=== PATIENT | female | born 1960 | race African-American/Black ===

== ENCOUNTER 2017-10-09 20:09 | Observation (INO) | payer SELFPAY ==
[~2017-10-09 20:09] MED LIST: HYDR50TA5 PO; IBUP400 PO; LORTA5 PO
[2017-10-09 20:11] VITALS: BP 185/90; PULSE 125; RESP 20; TEMP 102.3; O2SAT 96
[2017-10-09] MEDS ORDERED: ACETAMINOPHEN 325 MG TAB PO ONE (20:45)
[2017-10-09 21:04] VITALS: BP 185/79; PULSE 119; RESP 16; O2SAT 98
[2017-10-09] MEDS ORDERED: RESP: ALBUTEROL 2.5 MG/IPRATROPIUM 0.5 MG NEB (SCH) NEB ONE (21:15)
[2017-10-09] MEDS ORDERED: RESP: LIDOCAINE HCL 4% PF 5 ML NEB NEB ONE (21:15)
[2017-10-09] MEDS ORDERED: ASPIRIN 325 MG TAB PO ONE (21:15)
[2017-10-09] MEDS ORDERED: SODIUM CHLORIDE 0.9% FLUSH 10 ML FLUSH IVF PRN (21:15)
[2017-10-09] MEDS ORDERED: NITROGLYCERIN 2% OINT 1 GM PACKET TOPICAL ONE (21:15)
[2017-10-09 21:49] LABS: BASOPHIL % 0.3 % (0.0-2.0); BLOOD UREA NITROGEN 15 MG/DL (7-18); CALCIUM 9.5 MG/DL (8.5-10.1); CHLORIDE 104 MEQ/L (98-107); CREATININE 1.06 MG/DL (0.50-1.00); EOSINOPHIL # 0.1 TH/MM3 (0-0.4); EOSINOPHIL % 2.4 % (0.0-4.0); GLOMERULAR FILTRATION RATE 65 ML/MIN (>89); GLUCOSE,RANDOM 127 MG/DL (74-106); HEMATOCRIT 31.9 % (35.0-46.0); HEMOGLOBIN 10.1 GM/DL (11.6-15.3); LYMPH % 7.3 % (9.0-44.0); LYMPHOCYTE # 0.4 TH/MM3 (1.0-4.8); MEAN CELL VOLUME 64.9 FL (80.0-100.0); MEAN CORPUSCULAR HEMOGLOBIN 20.6 PG (27.0-34.0); MEAN CORPUSCULAR HGB CONC 31.7 % (32.0-36.0); MEAN PLATELET VOLUME 8.3 FL (7.0-11.0); MONO % 8.7 % (0.0-8.0); MONOCYTE # 0.5 TH/MM3 (0-0.9); NEUT % 81.3 % (16.0-70.0); PLATELET COUNT 241 TH/MM3 (150-450); RED BLOOD COUNT 4.91 MIL/MM3 (4.00-5.30); RED CELL DISTRIBUTION WIDTH 16.5 % (11.6-17.2); SODIUM (NA) 137 MEQ/L (136-145); WHITE BLOOD COUNT 6.1 TH/MM3 (4.0-11.0)
--- NOTE | 2017-10-09 21:51 | RADRPT ---
EXAM DATE/TIME: 10/09/2017 21:34 [facility] COMPARISON: No previous studies available for comparison. INDICATIONS : Chest pain. Short of breath. MEDICAL HISTORY : None. SURGICAL HISTORY : None. ENCOUNTER: Initial ACUITY: 2 days PAIN SCORE: 8/10 LOCATION: Bilateral chest FINDINGS: A single view of the chest demonstrates the lungs to be symmetrically aerated without evidence of mas s, infiltrate or effusion. There is some prominence of the pulmonary vasculature. The cardiomediastin al contours are unremarkable. Osseous structures are intact. CONCLUSION: Pulmonary venous congestion. No acute pulmonary infiltrates. Christ Krause MD on October 09, 2017 at 21:48 Board Certified Radiologist. This report was verified electronically.
[2017-10-09 22:05] LABS: PROTHROMBIN TIME - PATIENT 10.6 SEC (9.8-11.6)
[2017-10-09 22:06] LABS: D-DIMER 1.02 MG/L FEU (0.00-0.50)
[2017-10-09 22:09] VITALS: O2SAT 96
[2017-10-09] MEDS ORDERED: FUROSEMIDE 40 MG TAB PO ONE (22:15)
[2017-10-09 22:30] VITALS: BP 168/69; PULSE 120; RESP 16; O2SAT 95
[2017-10-09 22:31] VITALS: BP 168/69; PULSE 120; RESP 16; O2SAT 96
[2017-10-09 22:42] LABS: TROPONIN I LESS THAN 0.02 NG/ML (0.02-0.05)
--- NOTE | 2017-10-09 23:44 | RADRPT ---
EXAM DATE/TIME: 10/09/2017 23:14 [facility] COMPARISON: No previous studies available for comparison. INDICATIONS : Bilateral leg swelling. MEDICAL HISTORY : Hypertension. Cardiac disorders. SURGICAL HISTORY : Tubal ligation. ENCOUNTER: Initial ACUITY: >1 year PAIN SCORE: 6/10 LOCATION: Bilateral legs. TECHNIQUE: Venous ultrasound of the left and right leg was performed from the inguinal ligament to the proximal calf. Real-time, color Doppler and spectral tracing, compression and augmentation techniques were us ed. FINDINGS: RIGHT LEG: There is normal compressibility of the deep venous system from the inguinal region to the proximal ca lf. No echogenic clot is seen in the lumen of the common femoral, femoral, popliteal, and posterior tibial veins. There is a normal response of the venous system to proximal and distal augmentation an d respiration. LEFT LEG: There is normal compressibility of the deep venous system from the inguinal region to the proximal ca lf. No echogenic clot is seen in the lumen of the common femoral, femoral, popliteal, and posterior tibial veins. There is a normal response of the venous system to proximal and distal augmentation an d respiration. CONCLUSION: No DVT is identified within either lower extremity. Wilfred Abarca MD on October 09, 2017 at 23:42 Board Certified Radiologist. This report was verified electronically.
[2017-10-09] MEDS ORDERED: IOHEXOL 350 MG/ML 10 ML VIAL (for RAD DIAG) IVCONTRAST ONE (23:59)
[2017-10-10] VITALS (10 sets, daily range): BP systolic 125–172; BP diastolic 63–77; PULSE 78–108; RESP 18–22; TEMP 98.7–100.1; O2SAT 95–99
--- NOTE | 2017-10-10 00:09 | RADRPT ---
EXAM DATE/TIME: 10/09/2017 23:45 [facility] COMPARISON: No previous studies available for comparison. INDICATIONS : Chest pain. IV CONTRAST: 75 cc Omnipaque 350 (iohexol) IV RADIATION DOSE: 20.11 CTDIvol (mGy) ; Patient body habitus MEDICAL HISTORY : Cardiovascular disease. Hypertension. SURGICAL HISTORY : None. ENCOUNTER: Initial ACUITY: 1 day PAIN SCALE: 4/10 LOCATION: Bilateral chest TECHNIQUE: Volumetric scanning of the chest was performed using a pulmonary embolism protocol MIP images were re constructed. Using automated exposure control and adjustment of the mA and/or kV according to patien t size, radiation dose was kept as low as reasonably achievable to obtain optimal diagnostic quality images. DICOM format image data is available electronically for review and comparison. Follow-up recommendations for detected pulmonary nodules are based at a minimum on nodule size and pa tient risk factors according to Fleischner Society Guidelines. FINDINGS: PULMONARY ARTERIES: No filling defects are seen in the pulmonary arteries through the segmental level. LUNGS: There is no consolidation or pneumothorax . No concerning pulmonary nodule is visualized. PLEURAE: There is no pleural thickening or pleural effusion. MEDIASTINUM: There is good visualization of the great vessels of the middle mediastinum. No evidence of mediastin al or hilar adenopathy/mass. MUSCULOSKELETAL: No acute abnormality. MISCELLANEOUS: The visualized upper abdominal organs demonstrate no acute abnormality. There is a small hiatal herni a. CONCLUSION: 1. No PE is identified. Additionally, no acute finding is identified to explain the patient's chest p ain. 2. Small hiatal hernia. Wilfred Abarca MD on October 10, 2017 at 0:02 Board Certified Radiologist. This report was verified electronically.
[2017-10-10] MEDS ORDERED: predniSONE 20 MG TAB PO ONE (02:15)
[2017-10-10] MEDS ORDERED: RESP: ALBUTEROL 2.5 MG/IPRATROPIUM 0.5 MG NEB (SCH) NEB ONE ×2 (02:15→22:45)
--- NOTE | 2017-10-10 03:24 | PD ---
HPI . Cold/flu symptoms Chief Complaint: Cold / Flu Symptoms Time Seen by Provider: 21:09 Travel History International Travel<30 days: No Contact w/Intl Traveler<30days: No Traveled to known affect area: No History of Present Illness HPI 57-year-old female with no significant past medical history, however the patient does not frequent doctor's office, last visit was potentially 20 years ago, presents with having upper respiratory type symptoms with staccato cough, difficulty taking a deep breath without causing the cough, patient also notes increased leg swelling of late, with having worsening of shortness of breath with lying supine. This is been increasing over the past several weeks to month. Patient does note slight decrease in exercise tolerance. Patient has a history of morbid obesity but notes some increasing weight gain of late as well , unquantified. Patient denies fevers chills sweats, body aches. Patient is frequently sedentary. Her lifestyle, has had no confining travel. PFSH Past Medical History Narrative Medical Past medical history reviewed. See history of present illness Cardiovascular Problems: Yes Diminished Hearing: No Hypertension: Yes Immunizations Current: No Tubal Ligation: Yes Social History Alcohol Use: No Tobacco Use: No Substance Use: No Allergies-Medications (Allergen,Severity, Reaction): Coded Allergies: No Known Allergies (Unverified Allergy, Unknown, 10/09/17) Reported Meds & Prescriptions Reported Meds & Active Scripts Active Narrative Medication Allergies and medications reviewed Review of Systems Except as stated in HPI: all other systems reviewed are Neg General / Constitutional: No: Fever Eyes: No: Visual changes HENT: No: Headaches Cardiovascular: No: Chest Pain or Discomfort Respiratory: Positive: Cough, Shortness of Breath, Wheezing, Orthopnea, No: Sneezing, Hemoptysis, Stridor, Night Sweats, Pleuritic Pain Gastrointestinal: No: Abdominal Pain Genitourinary: No: Dysuria Musculoskeletal: Positive: Edema, No: Pain Skin: No Rash Neurologic: No: Weakness Psychiatric: No: Depression Endocrine: No: Polydipsia Hematologic/Lymphatic: No: Easy Bruising Physical Exam Narrative GENERAL: Awake alert oriented 3 mild respiratory distress with frequent coughing. Oxygen saturation 95/96% on room air. SKIN: Warm and dry. Color is normal no diaphoresis cyanosis or pallor HEAD: Atraumatic. Normocephalic. EYES: Pupils equal and round. No scleral icterus. No injection or drainage. ENT: No nasal bleeding or discharge. Mucous membranes pink and moist. NECK: Trachea midline. No JVD. Supple no stridor CARDIOVASCULAR: Regular rate and rhythm. S1-S2 no murmurs rubs gallops RESPIRATORY: No accessory muscle use. Clear to auscultation. Breath sounds equal bilaterally. Prolonged expiratory phase with cough only. Mild rhonchi with forced exhalation/cough. Equal bilateral excursions GASTROINTESTINAL: Abdomen soft, non-tender, nondistended. Hepatic and splenic margins not palpable. MUSCULOSKELETAL: Extremities without clubbing, cyanosis, . No obvious deformities. Patient is morbidly obese, however patient does have increased pitting edema bilateral lower extremities NEUROLOGICAL: Awake and alert. No obvious cranial nerve deficits. Motor grossly within normal limits. Five out of 5 muscle strength in the arms and legs. Normal speech. PSYCHIATRIC: Appropriate mood and affect; insight and judgment normal. Data Data Last Documented VS Vital Signs Date Time Temp Pulse Resp B/P (MAP) Pulse Ox O2 Delivery O2 Flow Rate FiO2 10/10/17 03:15 10/09/17 22:31 120 16 96 Room Air 10/09/17 22:09 21 10/09/17 20:11 102.3 Orders Orders Influenzae A/B Antigen (10/09/17 20:37) Complete Blood Count With Diff (10/09/17 20:37) Basic Metabolic Panel (Bmp) (10/09/17 20:37) Group A Rapid Strep Screen (10/09/17 20:37) Acetaminophen (Tylenol) (10/09/17 20:45) Electrocardiogram (10/09/17 ) Chest, Single Ap (10/09/17 ) Electrocardiogram (10/09/17 21:10) B-Type Natriuretic Peptide (10/09/17 21:10) D-Dimer (10/09/17 21:10) Prothrombin Time / Inr (Pt) (10/09/17 21:10) Act Partial Throm Time (Ptt) (10/09/17 21:10) Ecg Monitoring (10/09/17 21:10) Bilateral Bp Monitoring (10/09/17 21:10) Iv Access Insert/Monitor (10/09/17 21:10) Oximetry (10/09/17 21:10) Oxygen Administration (10/09/17 21:10) Sodium Chloride 0.9% Flush (Ns Flush) (10/09/17 21:15) Aspirin (Aspirin) (10/09/17 21:15) Nitroglycerin 2% Oint (Nitroglycerin 2% (10/09/17 21:15) Albuterol-Ipratropium Neb (Duoneb Neb) (10/09/17 21:15) Lidocaine Pf 4% Neb (Lidocaine Pf 4% Neb (10/09/17 21:15) Strep Culture (Group A) (10/09/17 20:55) Ckmb (Isoenzyme) Profile (10/09/17 20:55) Magnesium (Mg) (10/09/17 20:55) Troponin I (10/09/17 20:55) Furosemide (Lasix) (10/09/17 22:15) CKMB (10/09/17 20:55) CKMB% (10/09/17 20:55) Ct Pulmonary Angiogram (10/09/17 ) Us Leg Venous Doppler Bilat (10/09/17 ) Iohexol 350 Inj (Omnipaque 350 Inj) (10/09/17 23:59) Troponin I (10/10/17 00:57) Prednisone (Deltasone) (10/10/17 02:15) Albuterol-Ipratropium Neb (Duoneb Neb) (10/10/17 02:15) Labs Laboratory Tests Test 10/09/17 20:55 10/09/17 21:12 10/10/17 01:12 White Blood Count 6.1 TH/MM3 Red Blood Count 4.91 MIL/MM3 Hemoglobin 10.1 GM/DL Hematocrit 31.9 % Mean Corpuscular Volume 64.9 FL Mean Corpuscular Hemoglobin 20.6 PG Mean Corpuscular Hemoglobin Concent 31.7 % Red Cell Distribution Width 16.5 % Platelet Count 241 TH/MM3 Mean Platelet Volume 8.3 FL Neutrophils (%) (Auto) 81.3 % Lymphocytes (%) (Auto) 7.3 % Monocytes (%) (Auto) 8.7 % Eosinophils (%) (Auto) 2.4 % Basophils (%) (Auto) 0.3 % Neutrophils # (Auto) 5.0 TH/MM3 Lymphocytes # (Auto) 0.4 TH/MM3 Monocytes # (Auto) 0.5 TH/MM3 Eosinophils # (Auto) 0.1 TH/MM3 Basophils # (Auto) 0.0 TH/MM3 CBC Comment DIFF FINAL Differential Comment Blood Urea Nitrogen 15 MG/DL Creatinine 1.06 MG/DL Random Glucose 127 MG/DL Calcium Level 9.5 MG/DL Magnesium Level 2.0 MG/DL Sodium Level 137 MEQ/L Potassium Level 3.8 MEQ/L Chloride Level 104 MEQ/L Carbon Dioxide Level 28.0 MEQ/L Anion Gap 5 MEQ/L Estimat Glomerular Filtration Rate 65 ML/MIN Total Creatine Kinase 110 U/L Creatine Kinase MB 0.9 NG/ML Troponin I LESS THAN 0.02 NG/ML LESS THAN 0.02 NG/ML Prothrombin Time 10.6 SEC Prothromb Time International Ratio 1.0 RATIO Activated Partial Thromboplast Time 28.3 SEC D-Dimer Quantitative (PE/DVT) 1.02 MG/L FEU B-Type Natriuretic Peptide 40 PG/ML MDM Medical Decision Making Medical Screen Exam Complete: Yes Emergency Medical Condition: Yes Medical Record Reviewed: Yes Differential Diagnosis Peripheral edema, CHF, upper respiratory infection, influenza, pneumonia, pulmonary embolus, myocardial infarction, renal failure Narrative Course Chest x-ray mild pulmonary congestion. Laboratory examinations reviewed, patient has normal cardiac enzymes. Elevated d-dimer EKG: Sinus tachycardia at 120 bpm, T-wave inversions V4 V5 and V6. Repeat EKG no evolution, T-wave inversions V4 V5 and V6. Unclear age of same. CT pulmonary angiogram negative for acute ulnar embolus. Bilateral duplex Doppler lower extremity negative for acute DVT Patient has interval improvement with orthopnea, leg swelling after Lasix and diuresis. Patient has interval improvement in staccato cough and shortness of breath with wheeze after treatment with albuterol Atrovent treatments and steroids. Case discussed with patient, patient's daughter, and hospitalist service. Patient's deep T-wave inversions in her precordium leads V4 4 through 6 and relatively acute onset of peripheral edema and orthopnea concerning for possible recent cardiac event. Patient has no established physician as outpatient. Recommended patient be admitted under observation, echocardiogram and potential cardiology consult in the a.m. Diagnosis Primary Impression: Congestive heart failure Qualified Codes: I50.9 - Heart failure, unspecified Additional Impression: Acute bronchitis Qualified Codes: J20.9 - Acute bronchitis, unspecified Admitting Information Admitting Physician Requests: Observation Patient Instructions: General Instructions Departure Forms: Tests/Procedures Unkenholz,Adonis Jemal MD Oct 10, 2017 03:24
[2017-10-10] MEDS ORDERED: SODIUM CHLORIDE 0.9% FLUSH 10 ML FLUSH IV FLUSH PRN (04:15)
[2017-10-10] MEDS ORDERED: ACETAMINOPHEN 325 MG TAB PO PRN (04:15)
[2017-10-10] MEDS ORDERED: ONDANSETRON HCL 4 MG/2 ML VIAL IVP PRN (04:15)
--- NOTE | 2017-10-10 05:18 | HHI.HP ---
[facility] No Primary Care Physician Admission Diagnosis Diagnoses: Travel History International Travel<30 Days: No Contact w/Intl Traveler <30 Da: No Traveled to Known Affected Are: No History of Present Illness 57-year-old female with no significant past medical history of present emergency department for evaluation of chest pain and cold-like symptoms. The patient reports a heaviness in her chest with accompanying shortness of breath. She states she has had a nonproductive cough with throat pain and fever for the past several days. She denies any past medical history however does not have a primary care provider see a physician regularly. She also complains of a 2 year history of bilateral lower extremity edema. Review of Systems Except as stated in HPI: all other systems reviewed are Neg Past Family Social History Past Medical History None Past Surgical History BTL Reported Medications Reported Meds & Active Scripts Active Allergies: Coded Allergies: No Known Allergies (Unverified Allergy, Unknown, 10/09/17) Family History Mother with diabetes mellitus Social History Negative for alcohol, tobacco and illicit drugs Physical Exam Vital Signs Vital Signs Date Time Temp Pulse Resp B/P (MAP) Pulse Ox O2 Delivery O2 Flow Rate FiO2 10/10/17 04:36 108 18 172/74 (106) 98 Room Air 10/10/17 03:15 10/09/17 22:31 120 16 168/69 (102) 96 Room Air 10/09/17 22:30 120 16 168/69 (102) 95 Room Air 10/09/17 22:29 95 10/09/17 22:09 96 21 10/09/17 21:04 119 16 185/79 (114) 98 10/09/17 21:03 97 10/09/17 20:11 102.3 125 20 185/90 (121) 96 Room Air Physical Exam GENERAL: Obese, female sitting up in bed SKIN: No rashes, ecchymoses or lesions. Cool and dry. HEAD: Atraumatic. Normocephalic. No temporal or scalp tenderness. EYES: Pupils equal round and reactive. Extraocular motions intact. No scleral icterus. No injection or drainage. ENT: Nose without bleeding, purulent drainage or septal hematoma. Throat without erythema, tonsillar hypertrophy or exudate. Uvula midline. Airway patent. NECK: Trachea midline. No JVD or lymphadenopathy. Supple, nontender, no meningeal signs. CARDIOVASCULAR: Regular rate and rhythm without murmurs, gallops, or rubs. RESPIRATORY: Clear to auscultation. Breath sounds equal bilaterally. No wheezes , rales, or rhonchi. GASTROINTESTINAL: Abdomen soft, non-tender, nondistended. No hepato-splenomegaly , or palpable masses. No guarding. MUSCULOSKELETAL: 2+ pitting edema to the knees. No calf tenderness. NEUROLOGICAL: Awake and alert. Cranial nerves II through XII intact. Motor and sensory grossly within normal limits. Normal speech. Laboratory Laboratory Tests Test 10/09/17 20:55 10/09/17 21:12 10/10/17 01:12 White Blood Count 6.1 Red Blood Count 4.91 Hemoglobin 10.1 Hematocrit 31.9 Mean Corpuscular Volume 64.9 Mean Corpuscular Hemoglobin 20.6 Mean Corpuscular Hemoglobin Concent 31.7 Red Cell Distribution Width 16.5 Platelet Count 241 Mean Platelet Volume 8.3 Neutrophils (%) (Auto) 81.3 Lymphocytes (%) (Auto) 7.3 Monocytes (%) (Auto) 8.7 Eosinophils (%) (Auto) 2.4 Basophils (%) (Auto) 0.3 Neutrophils # (Auto) 5.0 Lymphocytes # (Auto) 0.4 Monocytes # (Auto) 0.5 Eosinophils # (Auto) 0.1 Basophils # (Auto) 0.0 CBC Comment DIFF FINAL Differential Comment Blood Urea Nitrogen 15 Creatinine 1.06 Random Glucose 127 Calcium Level 9.5 Magnesium Level 2.0 Sodium Level 137 Potassium Level 3.8 Chloride Level 104 Carbon Dioxide Level 28.0 Anion Gap 5 Estimat Glomerular Filtration Rate 65 Total Creatine Kinase 110 Creatine Kinase MB 0.9 Troponin I LESS THAN 0.02 LESS THAN 0.02 Prothrombin Time 10.6 Prothromb Time International Ratio 1.0 Activated Partial Thromboplast Time 28.3 D-Dimer Quantitative (PE/DVT) 1.02 B-Type Natriuretic Peptide 40 Date/Time Source Procedure Growth Status 10/09/17 20:55 Throat Group A Streptococcus Screen Pending Received Result Diagram: 10/09/17205410/09/172054 Caprini VTE Risk Assessment Caprini VTE Risk Assessment: No/Low Risk (score <= 1) Caprini Risk Assessment Model Point Value = 1 Point Value = 2 Point Value = 3 Point Value = 5 Age 41-60 Minor surgery BMI > 25 kg/m2 Swollen legs Varicose veins or History of unexplained or recurrent spontaneous Oral contraceptives or hormone replacement Sepsis (< 1 month) Serious lung disease, including pneumonia (< 1 month) Abnormal pulmonary function Acute myocardial infarction Congestive heart failure (< 1 month) History of inflammatory bowel disease Medical patient at bed rest Age 61-74 Arthroscopic surgery Major open surgery (> 45 min) Laparoscopic surgery (> 45 min) Malignancy Confined to bed (> 72 hours) Immobilizing plaster cast Central venous access Age >= 75 History of VTE Family history of VTE Factor V Leiden Prothrombin [id number] Lupus anticoagulant Anticardiolipin antibodies Elevated serum homocysteine Heparin-induced thrombocytopenia Other congenital or acquired thrombophilia Stroke (< 1 month) Elective arthroplasty Hip, pelvis, or leg fracture Acute spinal cord injury (< 1 month) Prophylaxis Regimen Total Risk Factor Score Risk Level Prophylaxis Regimen 0-1 Low Early ambulation 2 Moderate Order ONE of the following: *Sequential Compression Device (SCD) *Heparin 5000 units SQ BID 3-4 Higher Order ONE of the following medications: *Heparin 5000 units SQ TID *Enoxaparin/Lovenox 40 mg SQ daily (WT < 150 kg, CrCl > 30 mL/min) *Enoxaparin/Lovenox 30 mg SQ daily (WT < 150 kg, CrCl > 10-29 mL/min) *Enoxaparin/Lovenox 30 mg SQ BID (WT < 150 kg, CrCl > 30 mL/min) AND/OR *Sequential Compression Device (SCD) 5 or more Highest Order ONE of the following medications: *Heparin 5000 units SQ TID (Preferred with Epidurals) *Enoxaparin/Lovenox 40 mg SQ daily (WT < 150 kg, CrCl > 30 mL/min) *Enoxaparin/Lovenox 30 mg SQ daily (WT < 150 kg, CrCl > 10-29 mL/min) *Enoxaparin/Lovenox 30 mg SQ BID (WT < 150 kg, CrCl > 30 mL/min) AND *Sequential Compression Device (SCD) Assessment and Plan Assessment and Plan Assessment/plan: 1. Chest pain/shortness of breath/edema EKG significant for T-wave inversion in the lateral leads, no ST segment elevation or depression, personally reviewed Initial troponin negative 2 BNP negative Echo pending given history of edema, chest pain, shortness of breath ACS rule out pending; serial troponin/EKGs 2. Upper respiratory infection No leukocytosis Left shift present Likely viral Negative for flu and strep Supportive care FEN Heart healthy diet Electrolytes: monitor and replete prn Heparin Zari Rashid MD Oct 10, 2017 05:18
[2017-10-10] MEDS ORDERED: ENOXAPARIN SODIUM 40 MG/0.4 ML SYRINGE SQ SCH (06:00)
[2017-10-10] MEDS: HEPARIN SODIUM - SQ 10,000 UNITS/ML VIAL SQ SCH ×3 (07:26→21:46)
[2017-10-10] MEDS: FUROSEMIDE 20 MG/2 ML VIAL IV PUSH SCH ×2 (09:13→18:18)
[2017-10-10] MEDS: ASPIRIN EC 81 MG TABEC PO SCH (09:13)
[2017-10-10] MEDS: SODIUM CHLORIDE 0.9% FLUSH 10 ML FLUSH IV FLUSH SCH ×2 (09:13→21:45)
--- NOTE | 2017-10-10 11:14 | HHI.PR ---
Subjective Remarks Follow-up for chest pain shortness of breathing Patient continues to complain of chest pain shortness of breathing. She said it worse is when she is lying down. Otherwise no other complaints. Patient had a fever last night. Objective Vitals Vital Signs Date Time Temp Pulse Resp B/P (MAP) Pulse Ox O2 Delivery O2 Flow Rate FiO2 10/10/17 09:05 96 10/10/17 08:35 100.1 100 19 153/77 (102) 95 10/10/17 04:36 108 18 172/74 (106) 98 Room Air 10/10/17 03:15 10/09/17 22:31 120 16 168/69 (102) 96 Room Air 10/09/17 22:30 120 16 168/69 (102) 95 Room Air 10/09/17 22:29 95 10/09/17 22:09 96 21 10/09/17 21:04 119 16 185/79 (114) 98 10/09/17 21:03 97 10/09/17 20:11 102.3 125 20 185/90 (121) 96 Room Air Result Diagram: 10/09/17205410/09/172054 Imaging Last Impressions Lower Extremity Ultrasound 10/09/17 0000 Signed Impressions: Service Date/Time: Monday, October 09, 2017 23:14 - CONCLUSION: No DVT is identified within either lower extremity. Wilfred Abarca MD Chest X-Ray 10/09/17 0000 Signed Impressions: Service Date/Time: Monday, October 09, 2017 21:34 - CONCLUSION: Pulmonary venous congestion. No acute pulmonary infiltrates. Christ Krause MD CT Angiography 10/09/17 0000 Signed Impressions: Service Date/Time: Monday, October 09, 2017 23:45 - CONCLUSION: 1. No PE is identified. Additionally, no acute finding is identified to explain the patient's chest pain. 2. Small hiatal hernia. Wilfred Abarca MD Objective Remarks GENERAL: in NAD SKIN: Warm and dry. HEAD: Normocephalic. EYES: No scleral icterus. No injection or drainage. NECK: Supple, trachea midline. No JVD or lymphadenopathy. CARDIOVASCULAR: Regular rate and rhythm without murmurs, gallops, or rubs. RESPIRATORY: Breath sounds equal bilaterally. No accessory muscle use. GASTROINTESTINAL: Abdomen soft, non-tender, nondistended. MUSCULOSKELETAL: Lower extremity swelling but no pitting edema. Medications and IVs Current Medications Acetaminophen (Tylenol) 650 mg ONCE ONCE PO Last administered on 10/09/17at 20: 45; Start 10/09/17 at 20:45; Stop 10/09/17 at 20:46; Status DC Sodium Chloride (NS Flush) 2 ml UNSCH PRN IVF FLUSH AFTER USING IV ACCESS Last administered on 10/09/17 21:25; Start 10/09/17 at 21:15; Stop 10/10/17 at 04:15; Status DC Aspirin (Aspirin) 325 mg ONCE ONCE PO Last administered on 10/09/17 21:25; Start 10/09/17 at 21:15; Stop 10/09/17 at 21:17; Status DC Nitroglycerin (Nitroglycerin 2% Oint) 1 inch ONCE ONCE TOPICAL Last administered on 10/09/17 21:25; Start 10/09/17 at 21:15; Stop 10/09/17 at 21:17; Status DC Albuterol/ Ipratropium (Duoneb Neb) 1 ampule ONCE ONCE NEB Last administered on 10/09/17 22:07; Start 10/09/17 at 21:15; Stop 10/09/17 at 21:17; Status DC Lidocaine HCl (Lidocaine Pf 4% Neb) 1 ml ONCE ONCE NEB Last administered on 10/09/17at 22:21; Start 10/09/17 at 21:15; Stop 10/09/17 at 21:17; Status DC Furosemide (Lasix) 40 mg ONCE ONCE PO Last administered on 10/09/17at 22:29; Start 10/09/17 at 22:15; Stop 10/09/17 at 22:16; Status DC Iohexol (Omnipaque 350 Inj) 75 ml STK-MED ONCE IVCONTRAST Last administered on 10/09/17 23:59; Start 10/09/17 at 23:59; Stop 10/10/17 at 00:00; Status DC Prednisone (Deltasone) 60 mg ONCE ONCE PO Last administered on 10/10/17 02:17 ; Start 10/10/17 at 02:15; Stop 10/10/17 at 02:16; Status DC Albuterol/ Ipratropium (Duoneb Neb) 1 ampule ONCE ONCE NEB Last administered on 10/10/17at 02:14; Start 10/10/17 at 02:15; Stop 10/10/17 at 02:16; Status DC Sodium Chloride (NS Flush) 2 ml UNSCH PRN IV FLUSH FLUSH AFTER USING IV ACCESS ; Start 10/10/17 at 04:15 Sodium Chloride (NS Flush) 2 ml BID IV FLUSH Last administered on 10/10/17at 09: 13; Start 10/10/17 at 09:00 Acetaminophen (Tylenol) 650 mg Q4H PRN PO TEMP > 100.4; Start 10/10/17 at 04:15 Ondansetron HCl (Zofran Inj) 4 mg Q6H PRN IVP NAUSEA OR VOMITING; Start at 04:15 Enoxaparin Sodium (Lovenox Inj) 40 mg Q24H SQ ; Start 10/10/17 at 06:00; Stop 10/10/17 at 06:00; Status DC Heparin Sodium (Porcine) (Heparin Inj) 5,000 units Q8HR SQ Last administered on 10/10/17at 07:26; Start 10/10/17 at 06:00 Aspirin (Ecotrin Ec) 81 mg DAILY PO Last administered on 10/10/17at 09:13; Start 10/10/17 at 09:00 Furosemide (Lasix Inj) 20 mg BID@,18 IV PUSH Last administered on 10/10/17at 09 :13; Start 10/10/17 at 09:00 A/P Assessment and Plan This is a 57-year-old female who presented with congestion, chest pain, shortness of breathing for a few days and lower extremity edema for months Chest pain/shortness of breath This seems to be more due to her congestion. Troponins all negative. Labs reviewed. No events over telemetry. EKG significant for T-wave inversion in the lateral leads, no ST segment elevation or depression, personally reviewed Patient does not have any cardiac history or any family history of cardiac history. She does have some ST wave changes on the EKG. We'll get a nuclear stress test done and echo. BNP is 40. Continue supportive care Lower extremity edema Most likely secondary to be volume overloaded. Recommend low-salt diet. Will start Lasix. Upper respiratory infection Likely viral. Strep and flu negative. Supportive care. Discharge Planning If echo and nuclear stress test negative patient can be discharged home. Josi Orellana MD Oct 10, 2017 11:14
[2017-10-10] MEDS: amLODIPine BESYLATE 5 MG TAB PO SCH (12:14)
[2017-10-10 13:31] LABS: CHOLESTEROL 163 MG/DL (120-200); TRIGLYCERIDES 29 MG/DL (42-150)
[2017-10-10 13:33] LABS: CHOLESTEROL/ HDL RATIO 2.42 RATIO; HDL CHOLESTEROL 67.2 MG/DL (40.0-60.0); LDL CHOLESTEROL 90 MG/DL (0-99)
[2017-10-10 13:34] LABS: TROPONIN I LESS THAN 0.02 NG/ML (0.02-0.05)
[2017-10-10] MEDS ORDERED: REGADENOSON INJ 0.4 MG/5 ML SYR ONE (13:49)
[2017-10-10] MEDS ORDERED: AMLO5 PO (14:46)
[2017-10-10] MEDS ORDERED: ECASA81 PO ×2 (14:46→15:03)
[2017-10-10] MEDS ORDERED: FURO1TAB62 PO ×2 (14:46→15:04)
[2017-10-10] MEDS ORDERED: AMLO5TAB2 PO ×2 (15:01→15:03)
--- NOTE | 2017-10-10 15:09 | RADRPT ---
EXAM DATE/TIME: 10/10/2017 13:25 [facility] COMPARISON: No previous studies available for comparison. INDICATIONS : Chest pain with dyspnea. Abnormal EKG. DOSE: 30.0 mCi Tc99m Myoview at stress. 10.0 mCi Tc99m Myoview at rest. 0.4 mg Lexiscan STRESS SYMPTOMS: Asymptomatic. EJECTION FRACTION: 64% MEDICAL HISTORY : Hypertension. SURGICAL HISTORY : Tubal ligation. ENCOUNTER: Initial ACUITY: 2 days PAIN SCALE: 6/10 LOCATION: Substernal chest TECHNIQUE: The patient underwent pharmacologic stress with infusion of prescribed dose. Continuous ECG tracing was monitored during stress. Gated SPECT imaging was performed after stress and conventional SPECT i maging was performed at rest. The examination was performed on a SPECT/CT scanner, both attenuation and non-corrected datasets were reviewed. FINDINGS: DISTRIBUTION: The maximum perfused segment at stress is in the inferior wall. PERFUSION STUDY: The pattern of perfusion at stress is within normal limits. GATED STUDY: There is intact wall motion and thickening without hypokinetic or dyskinetic segments. CONCLUSION: 1. Unremarkable myocardial perfusion scan. RISK CATEGORY: Low (<1% Annual Mortality Rate) Rayo Perez MD on October 10, 2017 at 15:07 Board Certified Radiologist. This report was verified electronically.
[2017-10-10] MEDS ORDERED: GADODIAMIDE PF 287 MG/ML 20 ML VIAL (for RAD MRI) IVCONTRAST ONE (15:15)
--- NOTE | 2017-10-10 15:41 | RADRPT ---
EXAM DATE/TIME: 10/10/2017 14:51 [facility] COMPARISON: No previous studies available for comparison. INDICATIONS : CVA. Intermittent loss of vision. MEDICAL HISTORY : Hypertension. SURGICAL HISTORY : Tubal ligation. ENCOUNTER: Subsequent ACUITY: 2 day PAIN SCORE: 0/10 LOCATION: head. Please note a normal MRA of the brain does not entirely exclude the possibility of a small aneurysm, nor the possibility of distal intracranial vessel disease. TECHNIQUE: 3D time of flight MRA was performed. Source images, multiplanar STS MIP, and 3D volume MIP reconstru ctions were reviewed. FINDINGS: There is excellent visualization of the major intracranial arteries out to the second-order branch ve ssels. There is no evidence for aneurysm, vessel truncation or stenosis, and no evidence for vascula r malformation. CONCLUSION: Normal examination. Wilfred Boucher MD on October 10, 2017 at 15:33 Board Certified Radiologist. This report was verified electronically.
--- NOTE | 2017-10-10 15:43 | RADRPT ---
EXAM DATE/TIME: 10/10/2017 14:51 [facility] COMPARISON: No previous studies available for comparison. INDICATIONS : CVA. Intermittent loss of vision. MEDICAL HISTORY : Hypertension. SURGICAL HISTORY : Tubal ligation. ENCOUNTER: Subsequent ACUITY: 2 day PAIN SCORE: 0/10 LOCATION: head. TECHNIQUE: Multiplanar, multisequence MRI of the brain was performed without contrast. FINDINGS: CEREBRUM: The ventricles are normal for age. No evidence of midline shift, mass lesion, hemorrhage or acute in farction. No extraaxial fluid collections are seen. The pituitary gland and suprasellar cistern are normal in configuration. WHITE MATTER: Scattered areas of focal T2 prolongation in the periventricular and subcortical white matter, fairly numerous for patient of this relatively young age. POSTERIOR FOSSA: The cerebellum and brainstem are intact. The 4th ventricle is midline. The cerebellopontine angle is unremarkable. The cerebellar tonsils are normal in position. DIFFUSION IMAGING: No focal areas of restricted diffusion are seen. No evidence of acute infarction. EXTRACRANIAL: The visualized portions of the orbits and paranasal sinuses are unremarkable. CONCLUSION: Abundant punctate areas of white matter signal alteration worrisome for demyelinating process. Wilfred Boucher MD on October 10, 2017 at 15:39 Board Certified Radiologist. This report was verified electronically.
--- NOTE | 2017-10-10 16:09 | EKG ---
Date Performed: 10/09/2017 Time Performed: 21:16:03 PTAGE: 57 years EKG: SINUS TACHYCARDIA LEFT VENTRICULAR HYPERTROPHY AND ST-T CHANGE ABNORMAL ECG Since the prior tracing, there has been no significant change NO PREVIOUS TRACING DOCTOR: Jolene Rosas Interpretating Date/Time 10/10/2017 16:07:18
--- NOTE | 2017-10-10 16:09 | EKG ---
Date Performed: 10/09/2017 Time Performed: 20:51:12 PTAGE: 57 years EKG: SINUS TACHYCARDIA ST DEVIATION AND MODERATE T-WAVE ABNORMALITY, CONSIDER LATERAL ISCHEMIA S T DEVIATION AND MODERATE T-WAVE ABNORMALITY, CONSIDER INFERIOR ISCHEMIA ABNORMAL ECG Since the prior tracing, there has been no significant change NO PREVIOUS TRACING DOCTOR: Jolene Rosas Interpretating Date/Time 10/10/2017 16:07:05
--- NOTE | 2017-10-10 17:09 | RADRPT ---
EXAM DATE/TIME: 10/10/2017 14:51 [facility] COMPARISON: MRI BRAIN W/O CONTRAST, October 10, 2017, 14:51. INDICATIONS : Stenosis. CVA. CONTRAST: 20 cc Omniscan (gadodiamide) IV MEDICAL HISTORY : Hypertension. SURGICAL HISTORY : Tubal ligation. ENCOUNTER: Subsequent ACUITY: 2 day PAIN SCORE: 0/10 LOCATION: neck. Percent stenosis is calculated using the diameter of the stenotic region over the diameter of the nor mal distal internal carotid artery. TECHNIQUE: Bolus infused MRA of the extracranial circulation was performed using a neurovascular coil. Post pro cessing was performed including rotating subvolume maximum intensity projections of each carotid matteo ry, rotating full volume maximum intensity projections of both carotid arteries, sagittal and coronal sliding thin slab reformations of each carotid artery, and left oblique sliding thin slab reformatio n through the aortic arch to include the origin of the arch branch vessels. FINDINGS: Percent stenosis is calculated using the diameter of the stenotic region over the diameter of the nor mal distal internal carotid artery. No abnormality is identified within the lung apices. There is normal origin of vessels from the arch without evidence of proximal stenosis. Vertebral arteries are codominant. Examination of the right common carotid artery demonstrates the vessel to be widely patent. There is 0-10% stenosis at the origin of the right internal carotid artery. More distally the cervical interna l carotid artery is intact. Examination of the left common carotid artery demonstrates the vessel to be widely patent. There is 0 -10% stenosis at the origin of the left internal carotid artery. More distally the cervical internal carotid artery is intact. CONCLUSION: 1. Negative MR angiography of the carotid arteries Rayo Perez MD on October 10, 2017 at 16:59 Board Certified Radiologist. This report was verified electronically.
--- NOTE | 2017-10-10 17:33 | ECHRPT ---
Indication: SHORTNESS OF BREATH CONCLUSIONS Normal left ventricular size. Mild concentric left ventricular hypertrophy. The left ventricular systolic function is normal with an estimated ejection fraction in the range of 55-60%. The left atrial size is [id number] dilated. The right atrial size is mildly dilated. Trace mitral valve regurgitation. There is trace tricuspid valve regurgitation. The estimated pulmonary arterial pressure is 27 mmHg. BP: / HR: Rhythm: Sinus MEASUREMENTS (Male / Female) Normal Values Technical Quality:Technically difficult study 2D ECHO LV Diastolic Diameter PLAX 5.4 cm 4.2 - 5.9 / 3.9 - 5.3 cm LV Systolic Diameter PLAX 4.0 cm IVS Diastolic Thickness 1.1 cm 0.6 - 1.0 / 0.6 - 0.9 cm LVPW Diastolic Thickness 1.1 cm 0.6 - 1.0 / 0.6 - 0.9 cm LV Relative Wall Thickness 0.4 RV Internal Dim ED PLAX 2.4 cm LVOT Diameter 2.0 cm Aortic Root Diameter 3.0 cm LA Systolic Diameter LX 3.6 cm 3.0 - 4.0 / 2.7 - 3.8 cm M-MODE AV Cusp Separation MM 1.8 cm DOPPLER AV Peak Velocity 172.0 cm/s AV Peak Gradient 11.8 mmHg AV Mean Gradient 5.0 mmHg AV Velocity Time Integral 33.3 cm LVOT Peak Velocity 91.7 cm/s LVOT Peak Gradient 3.4 mmHg LVOT Velocity Time Integral 18.4 cm AV Area Cont Eq vti 1.7 cm AV Area Cont Eq pk 1.7 cm Mitral E Point Velocity 105.0 cm/s Mitral A Point Velocity 104.0 cm/s Mitral E to A Ratio 1.0 LV E' Lateral Velocity 8.8 cm/s Mitral E to LV E' Lateral Ratio 12.0 LV E' Septal Velocity 7.1 cm/s Mitral E to LV E' Septal Ratio 14.7 TR Peak Velocity 206.0 cm/s TR Peak Gradient 17.0 mmHg PV Peak Velocity 71.4 cm/s PV Peak Gradient 2.0 mmHg FINDINGS LEFT VENTRICLE Normal left ventricular size. Mild concentric left ventricular hypertrophy. The left ventricular systolic function is normal with an estimated ejection fraction in the range of 55-60%. RIGHT VENTRICLE Normal right ventricular size and systolic function. LEFT ATRIUM The left atrial size is [id number] dilated. RIGHT ATRIUM The right atrial size is mildly dilated. ATRIAL SEPTUM The interatrial septum not well visualized. AORTA The aortic root and proximal ascending aorta are normal in size on limited imaging. MITRAL VALVE Structurally normal mitral valve. Trace mitral valve regurgitation. AORTIC VALVE Trileaflet aortic valve. No aortic valve stenosis or regurgitation. TRICUSPID VALVE There is trace tricuspid valve regurgitation. The estimated pulmonary arterial pressure is 27 mmHg. PULMONARY VALVE No pulmonary valve regurgitation or stenosis. VESSELS The inferior vena cava was not well visualized. PERICARDIUM No pericardial effusion. Christopher Anderson MD, FACC (Electronically Signed) Final Date:10 October 2017 17:32
[2017-10-10] MEDS ORDERED: MAGNESIUM HYDROXIDE SUSP 30 ML CUP PO ONE (22:45)
[2017-10-11] VITALS (9 sets, daily range): BP systolic 113–176; BP diastolic 62–94; PULSE 77–105; RESP 17–20; TEMP 99–99.7; O2SAT 94–96
[2017-10-11] MEDS: HEPARIN SODIUM - SQ 10,000 UNITS/ML VIAL SQ SCH (05:02)
[2017-10-11] MEDS ORDERED: BENZONATATE 100 MG CAP PO PRN (08:30)
[2017-10-11 08:55] LABS: AUTOMATED NEUTROPHIL # 1.4 TH/MM3 (1.8-7.7); BASOPHIL % 0.4 % (0.0-2.0); EOSINOPHIL % 0.6 % (0.0-4.0); HEMATOCRIT 29.4 % (35.0-46.0); HEMOGLOBIN 9.4 GM/DL (11.6-15.3); LYMPHOCYTE # 0.9 TH/MM3 (1.0-4.8); MEAN CELL VOLUME 64.1 FL (80.0-100.0); MEAN CORPUSCULAR HEMOGLOBIN 20.5 PG (27.0-34.0); MEAN PLATELET VOLUME 7.9 FL (7.0-11.0); MONO % 17.4 % (0.0-8.0); MONOCYTE # 0.5 TH/MM3 (0-0.9); NEUT % 49.6 % (16.0-70.0); PLATELET COUNT 195 TH/MM3 (150-450); RED BLOOD COUNT 4.59 MIL/MM3 (4.00-5.30); RED CELL DISTRIBUTION WIDTH 16.5 % (11.6-17.2); WHITE BLOOD COUNT 2.8 TH/MM3 (4.0-11.0)
--- NOTE | 2017-10-11 09:00 | MB ---
cc: REINA HUBBARD DATE OF CONSULTATION 10/11/2017 REASON FOR CONSULTATION This is a 57-year-old right-handed woman with a history of hypertension, otherwise she has been very healthy and she has had a cold in her chest, some shortness of breath when she lays down, fever to 103 for the last three days and two days ago on Monday when she stood up, her vision went dark and then back bright, dark, bright, dark, bright about five times a over several minutes. She had a headache for several days with her cold and chest cold, but no headache before then. The vision loss did not occur sitting or lying just standing up. SOCIAL HISTORY She is not a smoker or a drinker. No drugs. Lives with her children. FAMILY HISTORY Negative for cancer, seizure or stroke. REVIEW OF SYSTEMS Denies any diabetes, hypercholesterolemia, ME, CABG, cardiac arrhythmia, renal, hepatic or pulmonary disease, thyroid disease lupus, ulcer, cancer, seizure or stroke, A fib, Coumadin. PHYSICAL EXAM VITAL SIGNS: T. max here 102.3 yesterday and 99.2 now. GENERAL: She is awake and alert. Speech is fluent. She is not aphasic. VITAL SIGNS: Blood pressure 137/72, respiratory rate 17, pulse 92. Blood pressure initially was actually 185/90. NEUROLOGIC: She is awake and alert. Speech is fluent. She is not aphasic. A little bit of a cough. Pupils are equal, visual gu are full. Extraocular intact without nystagmus. Face is symmetric with normal sensation. Tongue was midline. No drift. Normal strength in the upper and lower extremities bilaterally. Toes are downgoing bilaterally. Pinprick is intact throughout upper and lower extremities and face. She is not ataxic on [id number]. There is no nystagmus. She is able to read across the room medium-sized writing. LABORATORY DATA LDL cholesterol is 90. Troponin negative. CPK 289. Hemoglobin A1c 7, CBC, hematocrits 32, platelet count is normal. Coags were normal. BMP initially was essentially unremarkable. Calcium and magnesium is normal. MRI of the brain showed white matter changes bilaterally but not consistent with MS. No Leija's fingers. MRA of the neck and pamunkey of [place] were normal. Nuclear scan for heart was normal. Chest x-ray, some pulmonary venous congestion. No infiltrates. ECHOCARDIOGRAM Normal ejection fraction, left atrial size is mildly to moderately dilated, although right at 3.6 on the measurements. The mitral valve was normal. Aortic valve negative. No pericardial effusion. IMPRESSION I think she probably just had some transient orthostatic hypotension from her illness. I do not see any evidence for stroke or MS. I think with the white matter changes, a baby aspirin a day is fine. Most of this, I think, is probably related to her illness. We could check a sed rate with the headache and if that is negative, she could be discharged from the neurological point of view. If she continues to have any problems with her vision, she should see ophthalmology, but overall I thought she looked well neurologically. We can check a standing blood pressure here also. MD TAMIKO Kerr/ZI /8:13 AM /8:29 AM
[2017-10-11 09:02] LABS: BICARBONATE 30.5 MEQ/L (21.0-32.0); CREATININE 0.96 MG/DL (0.50-1.00)
[2017-10-11] MEDS: ASPIRIN EC 81 MG TABEC PO SCH (09:15)
[2017-10-11] MEDS: amLODIPine BESYLATE 5 MG TAB PO SCH (09:15)
[2017-10-11] MEDS: FUROSEMIDE 20 MG/2 ML VIAL IV PUSH SCH (09:15)
[2017-10-11] MEDS: SODIUM CHLORIDE 0.9% FLUSH 10 ML FLUSH IV FLUSH SCH (09:16)
[2017-10-11 09:29] LABS: FREE T4 1.15 NG/DL (0.76-1.46)
--- NOTE | 2017-10-11 11:22 | HHI.DCPOC ---
Discharge Care Plan Diagnosis: (1) Acute bronchitis Goals to Promote Your Health * To prevent worsening of your condition and complications * To maintain your health at the optimal level Directions to Meet Your Goals Take your medications as prescribed Follow your dietary instruction Follow activity as directed Keep your appointments as scheduled Take your immunizations and boosters as scheduled If your symptoms worsen call your PCP, if no PCP go to Urgent Care Center or Emergency Room Smoking is Dangerous to Your Health. Avoid second hand smoke Call the 24-hour hour crisis hotline for domestic abuse at Josi Orellana MD Oct 11, 2017 11:22
[2017-10-11] MEDS ORDERED: FURO1TAB62 PO (11:24)
[2017-10-11] MEDS ORDERED: BENZ100 PO (11:24)
--- NOTE | 2017-10-11 13:28 | HHI.DS ---
Discharge Summary Admission Date Oct 10, 2017 at 05:50 Discharge Date: Oct 11, 2017 Admitting Diagnosis (1) Acute bronchitis ICD Code: J20.9 - Acute bronchitis, unspecified Diagnosis: Principal Status: Acute (2) Viral URI with cough ICD Code: J06.9 - Acute upper respiratory infection, unspecified; B97.89 - Other viral agents as the cause of diseases classified elsewhere Diagnosis: Principal Procedures see hospital course Brief History - From Admission 57-year-old female with no significant past medical history of present emergency department for evaluation of chest pain and cold-like symptoms. The patient reports a heaviness in her chest with accompanying shortness of breath. She states she has had a nonproductive cough with throat pain and fever for the past several days. She denies any past medical history however does not have a primary care provider see a physician regularly. She also complains of a 2 year history of bilateral lower extremity edema. CBC/BMP: 10/11/17 0826 10/11/17 0826 Significant Findings Laboratory Tests Test 10/09/17 20:55 10/09/17 21:12 10/10/17 01:12 10/10/17 11:40 Hemoglobin 10.1 GM/DL (11.6-15.3) Hematocrit 31.9 % (35.0-46.0) Mean Corpuscular Volume 64.9 FL (80.0-100.0) Mean Corpuscular Hemoglobin 20.6 PG (27.0-34.0) Mean Corpuscular Hemoglobin Concent 31.7 % (32.0-36.0) Neutrophils (%) (Auto) 81.3 % (16.0-70.0) Lymphocytes (%) (Auto) 7.3 % (9.0-44.0) Monocytes (%) (Auto) 8.7 % (0.0-8.0) Lymphocytes # (Auto) 0.4 TH/MM3 (1.0-4.8) Creatinine 1.06 MG/DL (0.50-1.00) Random Glucose 127 MG/DL (74-106) Estimat Glomerular Filtration Rate 65 ML/MIN (>89) Troponin I LESS THAN 0.02 NG/ML LESS THAN 0.02 NG/ML LESS THAN 0.02 NG/ML D-Dimer Quantitative (PE/DVT) 1.02 MG/L FEU (0.00-0.50) Hemoglobin A1c 7.0 % (4.3-6.0) Total Creatine Kinase 289 U/L (26-192) Triglycerides Level 29 MG/DL (42-150) HDL Cholesterol 67.2 MG/DL (40.0-60.0) Test 10/11/17 08:26 White Blood Count 2.8 TH/MM3 (4.0-11.0) Hemoglobin 9.4 GM/DL (11.6-15.3) Hematocrit 29.4 % (35.0-46.0) Mean Corpuscular Volume 64.1 FL (80.0-100.0) Mean Corpuscular Hemoglobin 20.5 PG (27.0-34.0) Monocytes (%) (Auto) 17.4 % (0.0-8.0) Neutrophils # (Auto) 1.4 TH/MM3 (1.8-7.7) Lymphocytes # (Auto) 0.9 TH/MM3 (1.0-4.8) Erythrocyte Sedimentation Rate 49 mm/hr (0-30) Random Glucose 129 MG/DL (74-106) Potassium Level 3.4 MEQ/L (3.5-5.1) Estimat Glomerular Filtration Rate 72 ML/MIN (>89) Imaging Last Impressions Neck Magnetic Resonance Angiography 10/10/17 Signed Impressions: Service Date/Time: Tuesday, October 10, 2017 14:51 - CONCLUSION: 1. Negative MR angiography of the carotid arteries Rayo Perez MD Myocardial Perfusion Scan Nuc Med 10/10/17 Signed Impressions: Service Date/Time: Tuesday, October 10, 2017 13:25 - CONCLUSION: 1. Unremarkable myocardial perfusion scan. RISK CATEGORY: Low (<1%% Annual Mortality Rate) Rayo Perez MD Head Magnetic Resonance Angiography 10/10/17 Signed Impressions: Service Date/Time: Tuesday, October 10, 2017 14:51 - CONCLUSION: Normal examination. Wilfred Boucher MD Brain MRI 10/10/17 Signed Impressions: Service Date/Time: Tuesday, October 10, 2017 14:51 - CONCLUSION: Abundant punctate areas of white matter signal alteration worrisome for demyelinating process. Wilfred Boucher MD Lower Extremity Ultrasound 10/09/17 Signed Impressions: Service Date/Time: Monday, October 09, 2017 23:14 - CONCLUSION: No DVT is identified within either lower extremity. Wilfred Abarca MD Chest X-Ray 10/09/17 Signed Impressions: Service Date/Time: Monday, October 09, 2017 21:34 - CONCLUSION: Pulmonary venous congestion. No acute pulmonary infiltrates. Christ Krause MD CT Angiography 10/09/17 Signed Impressions: Service Date/Time: Monday, October 09, 2017 23:45 - CONCLUSION: 1. No PE is identified. Additionally, no acute finding is identified to explain the patient's chest pain. 2. Small hiatal hernia. Wilfred Abarca MD PE at Discharge GENERAL: in NAD SKIN: Warm and dry. HEAD: Normocephalic. EYES: No scleral icterus. No injection or drainage. NECK: Supple, trachea midline. No JVD or lymphadenopathy. CARDIOVASCULAR: Regular rate and rhythm without murmurs, gallops, or rubs. RESPIRATORY: Breath sounds equal bilaterally. No accessory muscle use. GASTROINTESTINAL: Abdomen soft, non-tender, nondistended. MUSCULOSKELETAL: Lower extremity swelling but no pitting edema. Pt update on day of discharge Follow-up for shortness of breathing, chest pain, and visual changes Patient denies any visual changes. She denies chest pain. She still feels short of breath. She mostly complaining of cough. Asking for cough medication. Patient ambulated without any difficulty. Her sisters at the bedside during the interview. UA was also ordered but patient did not want to give a urine sample she stated that it was too dirty for her. This was not needed for management. Hospital Course This is a 57-year-old female who presented with congestion, chest pain, shortness of breathing for a few days and lower extremity edema for months Chest pain/shortness of breath This seems to be more due to her congestion. Troponins all negative and nuclear stress test negative. No events over telemetry. Echo EF 55 to 60%, mild LVH. EKG significant for T-wave inversion in the lateral leads, no ST segment elevation or depression, personally reviewed Lower extremity edema Most likely secondary to be volume overloaded. Recommend low-salt diet. Lasix as needed. Upper respiratory infection Likely viral. Strep and flu negative. Supportive care. Prescribed Tessalon Perles for cough. Demyelinative changes on MRI of brain Neurologist consulted and stated changes are normal. Recommend sed rate which mildly elevated. I discussed the sed rate with Dr. Ortiz and he said most likely her symptoms are due to the viral illness. Orthostatics reviewed normal. Most likely diabetic Hemoglobin A1c 7. Patient told hemoglobin A1c must be repeated to confirm she had diabetes. Education given on diabetes. Recommend lifestyle modification with diet and exercise. Extensive education given to the patient and her sister who is at the bedside during the interview. Patient told to follow with the primary care provider in regards to this and that she may put patient on oral medication. Patient states she understood. Hypertension -prescribed amlodipine with better controlled. Pt Condition on Discharge: Good Discharge Disposition: Discharge Home Discharge Time: <= 30 minutes Discharge Instructions DIET: Follow Instructions for: Heart Healthy Diet, Diabetic Diet Activities you can perform: Regular-No Restrictions Follow up Referrals: PCP Follow-up - 1 Week New Medications: Amlodipine (Amlodipine) 5 Mg Tab 5 MG PO DAILY for Blood Pressure Management, #30 TAB 0 Refills Furosemide (Lasix) 20 Mg Tab 20 MG PO DAILY PRN for lower extremity edema, #30 TAB [address] (Aspirin DR) 81 Mg Tabdr 81 MG PO DAILY for prevent stroke, #30 TAB 0 Refills Benzonatate (Tessalon Perles) 100 Mg Cap 200 MG PO TID PRN for cough, #20 CAP 0 Refills Josi Orellana MD Oct 11, 2017 13:28
== END 2017-10-11 15:34 | disposition home or self-care (01) ==
LOC: NEPC 20:09 → NEDA 10-10 05:50 → NEPGCP 10-10 07:00
PROVIDERS: ADMIT Family Medicine; ATTEND Family Medicine
DX: J20.9 Acute bronchitis, unspecified (principal); J06.9 Acute upper respiratory infection, unspecified; B97.89 Other viral agents as the cause of diseases classified elsewhere; I11.0 Hypertensive heart disease with heart failure; I50.9 Heart failure, unspecified; E11.9 Type 2 diabetes mellitus without complications; M79.89 Other specified soft tissue disorders; R06.02 Shortness of breath; E66.01 Morbid (severe) obesity due to excess calories; R07.9 Chest pain, unspecified; R60.0 Localized edema; I95.1 Orthostatic hypotension; R79.1 Abnormal coagulation profile; R51 Headache
CPT/HCPCS: 70544; 70548; 70551; 71045; 71275; 78452; 80048; 80061; 82550; 82552; 82607; 83036; 83735; 83880; 84439; 84443; 84484; 85025; 85379; 85610; 85652; 85730; 87081; 87804; 87880; 93005; 93017; 93306; 93970; 94640; 94664; 96372; 96374; 99285; A9502; A9579; G0378; J1644; J1940; J2785; J7512; Q9967